=== PATIENT | male | born 2000 | race African-American/Black ===

== ENCOUNTER 2018-10-30 11:58 | Emergency (ER) | payer OTHER ==
[~2018-10-30] VITALS: Ht 162.6 cm; Wt 92.1 kg
[~2018-10-30 11:58] MED LIST: AZITHROMYCIN 2250 MG PO; IBUPROFEN 600600 M1 PO
[2018-10-30] MEDS ORDERED: CLARITIN-D 121 EAC1 PO (12:42)
[2018-10-30] MEDS ORDERED: TESSALON PERLE100 MG PO (12:42)
[2018-10-30] MEDS ORDERED: IBUPROFEN 600600 M1 PO (12:42)
[2018-10-30 13:57] VITALS: BP 140/91
== END 2018-10-30 13:58 | disposition home or self-care (01) ==
LOC: ER 11:58
DX: R05 Cough (principal); R50.9 Fever, unspecified; R51 Headache

== ENCOUNTER 2019-05-15 00:06 | Emergency (ER) | payer OTHER ==
[~2019-05-15] VITALS: Ht 162.6 cm; Wt 90.7 kg
[~2019-05-15 00:06] MED LIST changes: +CLARITIN-D 121 EAC1 PO; +TESSALON PERLE100 MG PO
[2019-05-15 01:55] VITALS: BP 149/80
== END 2019-05-15 05:21 | disposition home or self-care (01) ==
LOC: ER 00:06
DX: S90.111A Contusion of right great toe without damage to nail, initial encounter (principal); W20.8XXA Other cause of strike by thrown, projected or falling object, initial encounter; Y92.89 Other specified places as the place of occurrence of the external cause; Y93.89 Activity, other specified; Y99.8 Other external cause status